=== PATIENT | female | born 1990 | race Two or more races ===

== ENCOUNTER 2016-12-04 09:34 | Emergency (ER) | payer MEDICAID, OTHER ==
[~2016-12-04] VITALS: Ht 157.5 cm; Wt 70.8 kg
[2016-12-04 11:01] VITALS: BP 137/86
[2016-12-04] MEDS ORDERED: IPRATROPIUM BROM 0.5 MG/2.5ML INH SOL NEB ONE (11:45)
[2016-12-04] MEDS ORDERED: ALBUTEROL SULF 2.5 MG/0.5ML(0.5%) NEB SOLN NEB ONE (11:45)
== END 2016-12-04 12:22 | disposition home or self-care (01) ==
LOC: ER 09:34 → EDSEX 09:34 → ER 12:22
DX: J02.9 Acute pharyngitis, unspecified (principal)
CPT/HCPCS: 71020; 94640